=== PATIENT | male | born 1985 | race African-American/Black ===

== ENCOUNTER 2018-02-13 22:24 | Emergency (ER) | payer BC, OTHER ==
[~2018-02-13] VITALS: Ht 180.3 cm; Wt 81.7 kg
[~2018-02-13 22:24] MED LIST: FLEXERIL PO; IBUPROFEN 600600 M1 PO; NORCO 5-325 TA1 EACH PO
[2018-02-13] MEDS ORDERED: TESSALON PERLE100 MG PO (23:04)
[2018-02-13 23:43] VITALS: BP 132/89
== END 2018-02-13 23:44 | disposition home or self-care (01) ==
LOC: ER 22:24
DX: J30.9 Allergic rhinitis, unspecified (principal); F17.210 Nicotine dependence, cigarettes, uncomplicated; Z90.49 Acquired absence of other specified parts of digestive tract